=== PATIENT | female | born 1975 | race Caucasian/White ===

== ENCOUNTER 2017-09-17 20:26 | Emergency (ER) | payer BC, OTHER ==
[2017-09-17] MEDS ORDERED: Dexamethasone 10 MG/ML SDV IVPUSH ONE (20:48)
[2017-09-17] MEDS ORDERED: cefTRIAXone 1 GM in Sodium Chloride 0.9% 100 ML IV ONE (20:48)
--- NOTE | 2017-09-17 20:52 | EDM.PDOC ---
ED HPI GENERAL MEDICAL PROBLEM - General Chief Complaint: ENT Problem Stated Complaint: SORE THROAT UNABLE TO SWALLOW Time Seen by Provider: 09/17/17 20:47 Source of Information: Reports: Patient History Limitations: Reports: No Limitations - History of Present Illness INITIAL COMMENTS - FREE TEXT/NARRATIVE: 41-year-old female presents to the ED with severe right-sided sore throat pain that started yesterday afternoon. Disease be progressing to the opposite side and it's very painful to swallow particularly on the right side. Tonight she was having trouble even swallowing T. She still has her tonsils. No noted fever or chills. Cough or sputum production. Pain does radiate to her right ear with swallowing. She works out of her home and noted therefore does not know how she was exposed to any infectious process. Onset: Sudden Onset Date: 09/16/17 Onset Time: 15:00 Duration: Hour(s):, Getting Worse Location: Reports: Neck (Throat pain) Quality: Reports: Burning, Sharp, Stabbing, Other ([place] on the right side mildly on the left side tonight.) Severity: Moderate Improves with: Reports: None (Current pain is 7 out of 10.) Worsens with: Reports: Other (IGT or swallow. She did eat a little bit at dinnertime.) Context: Denies: Activity, Exercise, Lifting, Sick Contact, Trauma, Other Associated Symptoms: Reports: Loss of Appetite. Denies: No Other Symptoms, Confusion, Chest Pain, Cough, cough w sputum, Diaphoresis, Fever/Chills, Malaise , Nausea/Vomiting, Rash, Seizure, Shortness of Breath, Syncope, Weakness Treatments [employer]: Reports: NSAIDS Throat Pain Score (Numeric/FACES): 8 - Related Data Allergies Allergy/AdvReac Type Severity Reaction Status Date / Time No Known Allergies Allergy Verified 09/17/17 20:40 Home Meds: Home Meds Amoxicillin/Potassium Clav [Augmentin 500-125 Tablet] 1 each PO BID #14 tablet 09/17/17 [Rx] Azithromycin [Zithromax] 250 mg PO DAILY #6 tab 09/17/17 [Rx] oxyCODONE HCl/Acetaminophen [Percocet 5-325 mg Tablet] 1 - 2 each PO Q4H PRN # 10 tablet 09/17/17 [Rx] Past Medical History - Past Health History Medical/Surgical History: Denies Medical/Surgical History Social & Family History - Family History Family Medical History: Noncontributory - Tobacco Use Smoking Status *Q: Never Smoker - Caffeine Use Caffeine Use: Reports: Coffee - Recreational Drug Use Recreational Drug Use: No - Living Situation & Occupation Living situation: Reports: Occupation: Employed ED ROS ENT - Review of Systems Review Of Systems: See Below Constitutional: Reports: Malaise, Weakness, Fatigue, Decreased Appetite, Weight Loss. Denies: Fever, Chills HEENT: Reports: Ear Pain (Right side referred to the ear with swallowing.), Throat Pain (Severe right side starting yesterday afternoon) Respiratory: Reports: No Symptoms Cardiovascular: Reports: No Symptoms Endocrine: Reports: No Symptoms GI/Abdominal: Reports: No Symptoms : Reports: No Symptoms Musculoskeletal: Reports: No Symptoms Skin: Reports: No Symptoms Neurological: Reports: No Symptoms Psychiatric: Reports: No Symptoms Hematologic/Lymphatic: Reports: No Symptoms Immunologic: Reports: No Symptoms ED EXAM, ENT - Physical Exam Exam: See Below Exam Limited By: No Limitations General Appearance: Alert, WD/WN, No Apparent Distress Eye Exam: Bilateral Eye: Normal Inspection Ears: Normal External Exam, Normal TMs Mouth/Throat: Pharyngeal Erythema, Throat Swelling (September morning the right than on the left. Mild on the right side.), Tonsillar Erythema (Mild only on the right side.), Tonsillar Exudates (1 exudate noted), Tonsillar Swelling ( Right side) Head: Atraumatic, Scalp Ecchymosis Neck: Normal Inspection, Supple, Non-Tender, Full Range of Motion, Lymphadenopathy (L), Lymphadenopathy (R) (Right submandibular adenitis.) Respiratory/Chest: No Respiratory Distress, Lungs Clear, Normal Breath Sounds, No Accessory Muscle Use, Chest Non-Tender Cardiovascular: Normal Peripheral Pulses, Regular Rate, Rhythm, No Edema, No Murmur, No Rub Extremities: Normal Inspection, Normal Range of Motion, Non-Tender, No Pedal Edema Neurological: Alert, Oriented, CN II-XII Intact, Normal Cognition Psychiatric: Normal Affect, Normal Mood Skin: Warm, Intact, Normal Color, No Rash Course - Vital Signs Last Recorded V/S: Last Vital Signs Temp 36.5 C 09/17/17 20:37 Pulse 77 09/17/17 20:37 Resp 18 09/17/17 20:37 BP 150/90 H 09/17/17 20:37 Pulse Ox 100 09/17/17 20:37 - Orders/Labs/Meds Orders: Active Orders 24 hr Category Date Time Status Dextrose 5%-0.9% NaCl [Dextrose 5%-Normal Saline] 1,000 Med 09/17/17 21:00 Active ml IV ASDIRECTED HYDROmorphone [Dilaudid] Med 09/17/17 21:44 Once 0.5 mg IVPUSH ONETIME ONE Ketorolac [Toradol] Med 09/17/17 21:00 Active 30 mg IVPUSH ONETIME Ondansetron [Zofran] Med 09/17/17 21:44 Once 4 mg IVPUSH ONETIME ONE Medication Orders Dextrose/Sodium Chloride (Dextrose 5%-Normal Saline) 1,000 mls @ 500 mls/hr IV ASDIRECTED MAKENNA Last Admin: 09/17/17 21:12 Dose: 500 mls/hr Ketorolac Tromethamine (Toradol) 30 mg IVPUSH ONETIME MAKENNA Last Admin: 09/17/17 21:10 Dose: 30 mg Meds: Medications Generic Name Dose Route Start Last Admin Trade Name Freq PRN Reason Stop Dose Admin Dextrose/Sodium Chloride 1,000 mls @ 500 mls/hr 09/17/17 21:00 09/17/17 21:12 Dextrose 5%-Normal Saline IV 500 mls/hr ASDIRECTED MAKENNA Administration Ketorolac Tromethamine 30 mg 09/17/17 21:00 09/17/17 21:10 Toradol IVPUSH 30 mg ONETIME MAKENNA Administration Discontinued Medications Generic Name Dose Route Start Last Admin Trade Name Freq PRN Reason Stop Dose Admin Dexamethasone 10 mg 09/17/17 20:48 09/17/17 21:05 Dexamethasone IVPUSH 09/17/17 20:49 10 mg ONETIME ONE Administration Ceftriaxone Sodium 1 gm/ 100 mls @ 200 mls/hr 09/17/17 20:48 09/17/17 21:13 Sodium Chloride IV 09/17/17 21:17 200 mls/hr ONETIME ONE Administration - Radiology Interpretation Free Text/Narrative:: 41-year-old female presents today with acute pharyngitis and evidence of tonsillitis starting on the right side. Mild diffuse erythema of the right tonsils appreciated with only 1 spot of exudate. She does have mild cervical adenopathy at the submandibular glands bilaterally worse on the right as compared to the left. Plan IV Rocephin 1 g now. Dexamethasone 10 mg IV and Toradol 30 mg IV for acute pain relief. Will start her on Augmentin 500 mg twice daily tomorrow morning. At this time it's unlikely should be able to swallow a tablet therefore give her intravenous antibiotic. - Re-Assessments/Exams Free Text/Narrative Re-Assessment/Exam: 09/17/17 21:45 patient has completed 1 g of Rocephin intravenously. She still having significant pain in her right throat rates it as 6 out of 10. I will defer give her Zofran 4 mg IV with Dilaudid 0.5 mg IV for pain relief. She will then be discharged to home with plan to start Zithromax 250mg mg once daily tomorrow for the next 6 days. I also write a prescription through the [facility] for Percocet 5/325 milligrams tabs 10 tablets. One or 2 every 4-6 hours needed for pain relief. She will follow-up with personal care provider if not markedly improved in 48-72 hours time Departure - Departure Time of Disposition: 21:58 Disposition: Home, Self-Care 01 Condition: Fair Clinical Impression: Strep throat - Discharge Information Prescriptions: Amoxicillin/Potassium Clav [Augmentin 500-125 Tablet] 1 each PO BID #14 tablet Azithromycin [Zithromax] 250 mg PO DAILY #6 tab oxyCODONE HCl/Acetaminophen [Percocet 5-325 mg Tablet] 1 - 2 each PO Q4H PRN # 10 tablet PRN Reason: pain relief. Referrals: PCP,None [Primary Care Provider] - Forms: ED Department Discharge Additional Instructions: Evaluation the emergent today in regards to development of severe pain right throat with severe painful swallowing over the last 30 hours. Pain radiates into the right ear with swallowing. Examination reveals mild redness and swelling around the right tonsil. There is also enlargement of the submandibular glands under your chin. A few exam is normal. Early infection of the tonsil and throat appears to be evident likely from Streptococcus infection. Treatment was started in the ED with Rocephin 1 gm given intravenously. You are to start antibiotic Zithromax 250 mg once daily for the next 6 days tomorrow morning. He also received medications to reduce pain and swelling i.e. Toradol 30 mg IV and dexamethasone 10 mg IV. The dexamethasone will take 4-6 hours to start to work and reduce swelling and pain in that area. Given Dilaudid 0.5 g IV with Zofran 4 mg IV before discharge. Further pain relief. Prescription written for Percocet 5/3/25 milligram tablet 1 or 2 every 4 -6 hours needed for pain relief for the next 2 days. Marked marked relief over the next 36-48 hours. If not better in that timeframe please follow-up with personal care physician. - My Orders Last 24 Hours: My Active Orders 09/17/17 21:00 Dextrose 5%-0.9% NaCl [Dextrose 5%-Normal Saline] 1,000 ml IV ASDIRECTED Ketorolac [Toradol] 30 mg IVPUSH ONETIME 09/17/17 21:44 HYDROmorphone [Dilaudid] 0.5 mg IVPUSH ONETIME ONE Ondansetron [Zofran] 4 mg IVPUSH ONETIME ONE - Assessment/Plan Last 24 Hours: My Active Orders 09/17/17 21:00 Dextrose 5%-0.9% NaCl [Dextrose 5%-Normal Saline] 1,000 ml IV ASDIRECTED Ketorolac [Toradol] 30 mg IVPUSH ONETIME 09/17/17 21:44 HYDROmorphone [Dilaudid] 0.5 mg IVPUSH ONETIME ONE Ondansetron [Zofran] 4 mg IVPUSH ONETIME ONE
[2017-09-17] MEDS ORDERED: Dextrose 5%-0.9% NaCl 1,000 ML IV SCH (21:00)
[2017-09-17] MEDS ORDERED: Ketorolac 30 MG/ML SDV IVPUSH SCH (21:00)
[2017-09-17] MEDS ORDERED: Ondansetron 4 MG/2 ML SDV IVPUSH ONE (21:44)
[2017-09-17] MEDS ORDERED: HYDROmorphone 0.5 MG/0.5 ML SYRINGE IVPUSH ONE (21:44)
== END 2017-09-17 22:06 | disposition home or self-care (01) ==
LOC: JD.ED 20:26
DX: J02.0 Streptococcal pharyngitis (principal); Z79.2 Long term (current) use of antibiotics
CPT/HCPCS: 96365; 96375; 99283; J0696; J1100; J1170; J1885; J2405; J7030; J7042; 99284